=== PATIENT | male | born 1990 | race American Indian/Alaskan Native ===

== ENCOUNTER 2018-01-01 09:19 | Emergency (ER) | payer SELFPAY ==
[2018-01-01 09:32] VITALS: BP 106/63
--- NOTE | 2018-01-01 10:35 | Emergency Department Report ---
ED Male HPI - General Chief complaint: Urogenital-Male Stated complaint: POSSIBLE STD Time Seen by Provider: 01/01/18 10:14 Source: patient Mode of arrival: Ambulatory Limitations: No Limitations - History of Present Illness Initial comments: This is a 27 y.o. male that presents with bumps on shaft of penis. Patient states "I think I have genital warts". He admits to unprotected intercourse a few times. Reports bumps noticed 4 days ago. They started out as bumps but then 2 days ago they turned into white crust. They are very irritating with burning pain. Denies penile discharge, frequency, urgency, dysuria, testicular swelling or pain. MD Complaint: other (bumps on shaft of penis) -: days(s) (4) Location: penis Radiation: none Severity: mild Severity scale (0 -10): 4 Quality: burning Consistency: constant Improves with: none Worsens with: palpation, movement new sexual partner denies other symptoms - Related Data Sexually active: Yes Previous Rx's Medication Instructions Recorded Last Taken Type Valacyclovir HCl [Valtrex] 1,000 mg PO BID 10 Days #20 tablet 01/01/18 Unknown Rx Allergies Allergy/AdvReac Type Severity Reaction Status Date / Time No Known Allergies Allergy Unverified 01/01/18 09:29 ED Review of Systems ROS: Stated complaint: POSSIBLE STD Other details as noted in HPI Constitutional: denies: chills, fever Respiratory: denies: cough, shortness of breath, wheezing Cardiovascular: denies: chest pain, palpitations, dyspnea on exertion, syncope Gastrointestinal: denies: abdominal pain, nausea, vomiting, diarrhea, constipation Genitourinary: other (bumps on shaft of penis). denies: urgency, dysuria, frequency, hematuria, discharge, testicular pain, testicular mass Psychiatric: denies: anxiety, depression ED Past Medical Hx - Past Medical History Previous Medical History?: No - Surgical History Past Surgical History?: No - Social History Smoking Status: Current Every Day Smoker Substance Use Type: Marijuana - Medications Home Medications: Home Medications Medication Instructions Recorded Confirmed Last Taken Type Valacyclovir HCl [Valtrex] 1,000 mg PO BID 10 Days #20 tablet 01/01/18 Unknown Rx ED Physical Exam - General Limitations: No Limitations General appearance: alert, in no apparent distress - Respiratory Respiratory exam: Present: normal lung sounds bilaterally. Absent: respiratory distress, wheezes, rales, rhonchi, stridor, accessory muscle use - Cardiovascular Cardiovascular Exam: Present: regular rate, normal rhythm, normal heart sounds. Absent: systolic murmur, diastolic murmur, rubs, gallop - GI/Abdominal GI/Abdominal exam: Present: soft, normal bowel sounds. Absent: distended, tenderness, guarding, rebound, rigid, organomegaly, mass - exam: Present: circumcision. Absent: testicular tenderness, urethral discharge, scrotal swelling, vertical testicular lie External exam: Present: lesions (multiple 2-3 mm nodules to proximal foreskin, tender). Absent: erythema, swelling, lacerations, ecchymosis, bleeding - Neurological Exam Neurological exam: Present: alert, oriented X3, normal gait - Psychiatric Psychiatric exam: Present: normal affect, normal mood - Skin Skin exam: Present: warm, dry, intact, normal color. Absent: rash ED Course Vital Signs 01/01/18 09:29 Temperature 98.5 F Pulse Rate 77 Respiratory 16 Rate Blood Pressure 106/63 O2 Sat by Pulse 100 Oximetry ED Medical Decision Making - Medical Decision Making This is a 27 y.o. male that presents with bumps to penile shaft for 4 days. Patient was examined by me. Physical findings of multiple vesicles on proximal shaft, susceptible of HSV 2/1. Discussed plan to empirically treat with valtrax and to follow up with [facility] or [facility] for STD screening. No labs obtained on this visit. Discharged home in stable condition. Start valtrex 1,000 mg po bid x 10 days. Discussed prevention options. F/U with PCP or Health Department. Critical care attestation.: If time is entered above; I have spent that time in minutes in the direct care of this critically ill patient, excluding procedure time. ED Disposition Clinical Impression: Exposure to STD, Herpes genitalis in men Disposition: DC-01 TO HOME OR SELFCARE Is pt being admited?: No Does the pt Need Aspirin: No Condition: Stable Instructions: Genital Herpes Simplex (ED), Safe Sex (ED), Sexually Transmitted Diseases (ED) Additional Instructions: Continue safe sexual intercourse. Follow up with Primary Care Provider or health department for STD screening. Prescriptions: Valacyclovir HCl [Valtrex] 1,000 mg PO BID 10 Days #20 tablet Referrals: [facility] [Outside] - 3-5 Days [facility] [Outside] - 3-5 Days [facility] [Outside] - 3-5 Days Time of Disposition: 11:41 Print Language: BURMESE
[2018-01-01] MEDS ORDERED: VALTREX PO ONE (13:30)
== END 2018-01-01 12:12 | disposition home or self-care (01) ==
LOC: ED 09:19
DX: A60.00 Herpesviral infection of urogenital system, unspecified (principal); Z20.2 Contact with and (suspected) exposure to infections with a predominantly sexual mode of transmission; F17.200 Nicotine dependence, unspecified, uncomplicated; F12.10 Cannabis abuse, uncomplicated
CPT/HCPCS: 99282